=== PATIENT | male | born 1965 | race American Indian/Alaskan Native ===

== ENCOUNTER 2019-08-03 19:20 | Emergency (ER) | payer SELFPAY ==
[2019-08-03] MEDS ORDERED: CLINDAMYCIN 150 MG/ML VIAL 6 ML IM ONE (21:19)
[2019-08-03] MEDS ORDERED: TETANUS,DIPHTHERIA TOXOID ADULT 0.5 ML INJ IM ONE (21:19)
[2019-08-03] MEDS ORDERED: HYDROcodone/ACETAMINOPHEN 7.5-325MG TAB PO ONE (21:19)
--- NOTE | 2019-08-03 21:23 | Emergency Department Report ---
- General Chief complaint: Allergic Reaction Stated complaint: MORRIS,SORE THROAT Time Seen by Provider: 08/03/19 20:29 Source: patient Mode of arrival: Ambulatory Limitations: No Limitations - History of Present Illness Initial comments: Patient is a 54-year-old male presents emergency room with complaints of upper lip edema that began 3 days ago. He states that he did trim his mustache with a helen approximately a week ago. He states he has noticed a small amount of drainage to the upper lip. He states he has a subjective fever. He denies any nausea, vomiting, diarrhea, difficulty swallowing or difficulty breathing. He has a past medical history of sinusitis and hypertension. He states he is not on blood pressure medications and has not seen a doctor in 10 or more years. He is unsure of his last tetanus immunization. He states he has an allergy to honey. - Related Data Previous Rx's Medication Instructions Recorded Last Taken Type Clindamycin [Clindamycin CAP] 450 mg PO TID 7 Days #63 capsule 08/03/19 Unknown Rx traMADoL [Ultram 50 MG tab] 50 mg PO Q6HR PRN #10 tablet 08/03/19 Unknown Rx Allergies Allergy/AdvReac Type Severity Reaction Status Date / Time No Known Allergies Allergy Verified 08/03/19 21:56 Abscess Boil HPI - HPI Chief Complaint: Allergic Reaction Stated Complaint: MORRIS,SORE THROAT Time Seen by Provider: 08/03/19 20:29 Home Medications: Previous Rx's Medication Instructions Recorded Last Taken Type Clindamycin [Clindamycin CAP] 450 mg PO TID 7 Days #63 capsule 08/03/19 Unknown Rx traMADoL [Ultram 50 MG tab] 50 mg PO Q6HR PRN #10 tablet 08/03/19 Unknown Rx Allergies/Adverse Reactions: Allergies Allergy/AdvReac Type Severity Reaction Status Date / Time No Known Allergies Allergy Verified 08/03/19 21:56 ED Review of Systems ROS: Stated complaint: MORRIS,SORE THROAT Other details as noted in HPI Comment: All other systems reviewed and negative ED Past Medical Hx - Past Medical History Previous Medical History?: No - Surgical History Past Surgical History?: No - Social History Smoking Status: Never Smoker Substance Use Type: None - Medications Home Medications: Home Medications Medication Instructions Recorded Confirmed Last Taken Type Clindamycin [Clindamycin CAP] 450 mg PO TID 7 Days #63 capsule 08/03/19 Unknown Rx traMADoL [Ultram 50 MG tab] 50 mg PO Q6HR PRN #10 tablet 08/03/19 Unknown Rx ED Physical Exam - General Limitations: No Limitations General appearance: alert, in no apparent distress - Eye Eye exam: Present: normal appearance - ENT ENT exam: Present: normal orophraynx, mucous membranes moist, other (induration present to the upper lip, there is a small opening in the mustache region and a small opening present to the upper lip, able to manually express very small amount of purulent drainage, the skin of the upper lip is indurated and hard to palpation, not able to palpate central fluctuance) - Respiratory Respiratory exam: Present: normal lung sounds bilaterally. Absent: respiratory distress, wheezes, rales, rhonchi, stridor, chest wall tenderness, accessory muscle use, decreased breath sounds, prolonged expiratory - Cardiovascular Cardiovascular Exam: Present: regular rate, normal rhythm, normal heart sounds. Absent: systolic murmur, diastolic murmur, rubs, gallop - Neurological Exam Neurological exam: Present: alert, oriented X3 - Psychiatric Psychiatric exam: Present: normal affect, normal mood - Skin Skin exam: Present: warm, dry ED Course Vital Signs 08/03/19 08/03/19 08/03/19 19:27 19:29 21:54 Temperature 99.1 F 97.9 F Pulse Rate 94 H 80 Respiratory 18 18 Rate Blood Pressure 166/115 Blood Pressure 171/117 [Left] O2 Sat by Pulse 97 98 Oximetry ED Medical Decision Making - Lab Data Vital Signs 08/03/19 08/03/19 08/03/19 19:27 19:29 21:54 Temperature 99.1 F 97.9 F Pulse Rate 94 H 80 Respiratory 18 18 Rate Blood Pressure 166/115 Blood Pressure 171/117 [Left] O2 Sat by Pulse 97 98 Oximetry - Medical Decision Making Patient is a 54-year-old male presents emergency room with complaints of upper lip edema that began 3 days ago. He states that he did trim his mustache with a helen approximately a week ago. He states he has noticed a small amount of drainage to the upper lip. He states he has a subjective fever. He denies any nausea, vomiting, diarrhea, difficulty swallowing or difficulty breathing. He has a past medical history of sinusitis and hypertension. He states he is not on blood pressure medications and has not seen a doctor in 10 or more years. He is unsure of his last tetanus immunization. He states he has an allergy to honey. Vitals with elevated blood pressure otherwise stable. on exam: induration present to the upper lip, there is a small opening in the mustache region and a small opening present to the upper lip, able to manually express very small amount of purulent drainage, the skin of the upper lip is indurated and hard to palpation, not able to palpate central fluctuance. Patient examined by Dr. Ewing, ER attending who believes this is cellulitis and not an abscess at this time, he does not recommend I&D at this time, he recommends to give the patient antibiotics and have him follow-up with ENT. Patient given tetanus, clindamycin, pain medication while in the ED. Patient given prescription for pain medication and clindamycin. Advised patient Please take medication as prescribed. Do not drive or operate heavy machinery while taking pain medication. Please do not trim your mustache until all the infection has resolved. Please buy a new helen when you do begin trimming your mustache again. Please follow-up with the ear nose and throat doctor, it is very important that you follow-up with the ENT doctor in the next 3 days for reexamination. Return to the emergency room for any new or worsening symptoms. Please follow-up with a primary care doctor regarding the elevation in your blood pressure during today's visit. Keep a blood pressure log and take your blood pressure 3 times a day and take this to the primary care doctor. Eat a low-sodium (low salt) diet. Incorporate 30 minutes of daily exercise. Increase your water intake. Critical care attestation.: If time is entered above; I have spent that time in minutes in the direct care of this critically ill patient, excluding procedure time. ED Disposition Clinical Impression: Elevated blood pressure reading Cellulitis Qualifiers: Site of cellulitis: face Qualified Code(s): L03.211 - Cellulitis of face Disposition: DC- TO HOME OR SELFCARE Is pt being admited?: No Does the pt Need Aspirin: No Condition: Stable Instructions: Cellulitis (ED) Additional Instructions: Please take medication as prescribed. Do not drive or operate heavy machinery while taking pain medication. Please do not trim your mustache until all the infection has resolved. Please buy a new helen when you do begin trimming your mustache again. Please follow-up with the ear nose and throat doctor, it is very important that you follow-up with the ENT doctor in the next 3 days for reexamination. Return to the emergency room for any new or worsening symptoms. Please follow-up with a primary care doctor regarding the elevation in your blood pressure during today's visit. Keep a blood pressure log and take your blood pressure 3 times a day and take this to the primary care doctor. Eat a low-sodium (low salt) diet. Incorporate 30 minutes of daily exercise. Increase your water intake. Prescriptions: Clindamycin [Clindamycin CAP] 450 mg PO TID 7 Days #63 capsule traMADoL [Ultram 50 MG tab] 50 mg PO Q6HR PRN #10 tablet PRN Reason: Pain , Severe (7-10) Referrals: ELLA BOYLE MD [Staff Physician] - 3-5 Days ASHLEY STEWART MD [Staff Physician] - 3-5 Days ZEYAD MONTERO MD [Staff Physician] - 3-5 Days [facility] [Provider Group] - 3-[address] [facility] [Outside] - 3-5 Days [facility] [Outside] - 3-5 Days Forms: Work/School Release Form(ED) Time of Disposition: 21:24 Print Language: MAORI
[2019-08-03] MEDS ORDERED: DIPHtheria,PERTUSSIS(ACELL),TETANUS VACCINE/PF 0.5 ML VIAL IM ONE ×2 (21:43→21:45)
[2019-08-07 11:27] VITALS: BP 171/117
== END 2019-08-03 21:55 | disposition home or self-care (01) ==
LOC: ED 19:20
DX: K13.0 Diseases of lips (principal); I10 Essential (primary) hypertension; J32.9 Chronic sinusitis, unspecified; Z79.2 Long term (current) use of antibiotics; Z79.899 Other long term (current) drug therapy
CPT/HCPCS: 90714; 90715; 96372; 99282

== ENCOUNTER 2020-11-01 11:19 | Emergency (ER) | payer SELFPAY ==
[2020-11-01 11:44] VITALS: BP 129/95
[2020-11-01 12:57] LABS: Basophils % (Auto) 0.4 % (0.0-1.8); Eosinophils # (Auto) 0.4 K/mm3 (0.0-0.4); Eosinophils % (Auto) 5.8 % (0.0-4.3); Hematocrit 42.1 % (35.5-45.6); Lymphocytes # (Auto) 1.9 K/mm3 (1.2-5.4); Lymphocytes % (Auto) 30.2 % (13.4-35.0); Mean Corpuscular HGB Conc 33 % (32-34); Mean Corpuscular Volume 93 fl (84-94); Monocytes # (Auto) 0.5 K/mm3 (0.0-0.8); Monocytes % (Auto) 8.2 % (0.0-7.3); Platelet Count 214 K/mm3 (140-440); Red Blood Count 4.51 M/mm3 (3.65-5.03)
[2020-11-01 13:01] LABS: Alanine Aminotransferase 24 units/L (7-56); BUN/Creatinine Ratio 12; Blood Urea Nitrogen 16 mg/dL (9-20); Hemolysis Index 10
--- NOTE | 2020-11-01 13:23 | Emergency Department Report ---
ED General Adult HPI - General Chief complaint: Abdominal Pain Stated complaint: PAIN AND NAUSEA Time Seen by Provider: 11/01/20 12:30 Source: patient Mode of arrival: Ambulatory Limitations: No Limitations - History of Present Illness Initial comments: Patient is a 55-year-old male presents emergency room with complaints of left upper quadrant discomfort for over a month. He has associated nausea and reports that he has been having loose stools. He denies any vomiting, fever, hematochezia, melena, hematemesis, urinary symptoms, pain or swelling the testicles. He has never seen a GI doctor or had a colonoscopy/EGD. He denies any past medical history. No allergies to medications. - Related Data Previous Rx's Medication Instructions Recorded Last Taken Type Clindamycin [Clindamycin CAP] 450 mg PO TID 7 Days #63 capsule 08/03/19 Unknown Rx traMADoL [Ultram 50 MG tab] 50 mg PO Q6HR PRN #10 tablet 08/03/19 Unknown Rx Dicyclomine [Bentyl] 10 mg PO TID PRN #20 capsule 11/01/20 Unknown Rx Famotidine [Pepcid] 40 mg PO QHS #30 tablet 11/01/20 Unknown Rx Ondansetron [Zofran Odt] 4 mg PO Q8HR PRN #10 tab.rapdis 11/01/20 Unknown Rx Sucralfate [Carafate] 1 gm PO ACHS 7 Days #21 tablet 11/01/20 Unknown Rx Allergies Allergy/AdvReac Type Severity Reaction Status Date / Time No Known Allergies Allergy Verified 11/01/20 11:43 ED Review of Systems ROS: Stated complaint: PAIN AND NAUSEA Other details as noted in HPI Comment: All other systems reviewed and negative ED Past Medical Hx - Social History Smoking Status: Never Smoker Substance Use Type: None - Medications Home Medications: Home Medications Medication Instructions Recorded Confirmed Last Taken Type Clindamycin [Clindamycin CAP] 450 mg PO TID 7 Days #63 capsule 08/03/19 Unknown Rx traMADoL [Ultram 50 MG tab] 50 mg PO Q6HR PRN #10 tablet 08/03/19 Unknown Rx Dicyclomine [Bentyl] 10 mg PO TID PRN #20 capsule 11/01/20 Unknown Rx Famotidine [Pepcid] 40 mg PO QHS #30 tablet 08/07/21 Unknown Rx Ondansetron [Zofran Odt] 4 mg PO Q8HR PRN #10 tab.rapdis 11/01/20 Unknown Rx Sucralfate [Carafate] 1 gm PO ACHS 7 Days #21 tablet 11/01/20 Unknown Rx ED Physical Exam - General Limitations: No Limitations General appearance: alert, in no apparent distress - Head Head exam: Present: atraumatic, normocephalic - Eye Eye exam: Present: normal appearance - ENT ENT exam: Present: mucous membranes moist - Respiratory Respiratory exam: Present: normal lung sounds bilaterally. Absent: respiratory distress, wheezes, rales, rhonchi, stridor, chest wall tenderness, accessory muscle use, decreased breath sounds, prolonged expiratory - Cardiovascular Cardiovascular Exam: Present: regular rate, normal rhythm, normal heart sounds. Absent: systolic murmur, diastolic murmur, rubs, gallop - GI/Abdominal GI/Abdominal exam: Present: soft, tenderness (mild LUQ), normal bowel sounds. Absent: distended, guarding, rebound, rigid - Neurological Exam Neurological exam: Present: alert, oriented X3 - Psychiatric Psychiatric exam: Present: normal affect, normal mood - Skin Skin exam: Present: warm, dry, intact ED Course Vital Signs 11/01/20 11:43 Temperature 98.6 F Pulse Rate 72 Respiratory 16 Rate Blood Pressure 129/95 [Left] O2 Sat by Pulse 100 Oximetry ED Medical Decision Making - Lab Data Result diagrams: 11/01/20 12:08 11/01/20 12:08 Lab Results 11/01/20 11/01/20 Range/Units 12:08 12:08 WBC 6.3 (4.5-11.0) K/mm3 RBC 4.51 (3.65-5.03) M/mm3 Hgb 14.0 (11.8-15.2) gm/dl Hct 42.1 (35.5-45.6) % MCV 93 (84-94) fl MCH 31 (28-32) pg MCHC 33 (32-34) % RDW 14.0 (13.2-15.2) % Plt Count 214 (140-440) K/mm3 Lymph % (Auto) 30.2 (13.4-35.0) % [place] % (Auto) 8.2 H (0.0-7.3) % Eos % (Auto) 5.8 H (0.0-4.3) % Baso % (Auto) 0.4 (0.0-1.8) % Lymph # (Auto) 1.9 (1.2-5.4) K/mm3 [place] # (Auto) 0.5 (0.0-0.8) K/mm3 Eos # (Auto) 0.4 (0.0-0.4) K/mm3 Baso # (Auto) 0.0 (0.0-0.1) K/mm3 Seg Neutrophils % 55.4 (40.0-70.0) % Seg Neutrophils # 3.5 (1.8-7.7) K/mm3 Sodium 139 (137-145) mmol/L Potassium 4.6 (3.6-5.0) mmol/L Chloride 105.0 (98-107) mmol/L Carbon Dioxide 25 (22-30) mmol/L Anion Gap 14 mmol/L BUN 16 (9-20) mg/dL Creatinine 1.3 (0.8-1.3) mg/dL Estimated GFR > 60 ml/min BUN/Creatinine Ratio 12 % Glucose 84 (75-100) mg/dL Calcium 9.0 (8.4-10.2) mg/dL Total Bilirubin 0.30 (0.1-1.2) mg/dL AST 19 (5-40) units/L ALT 24 (7-56) units/L Alkaline Phosphatase 94 (35-129) units/L Total Protein 7.7 (6.3-8.2) g/dL Albumin 4.0 (3.9-5) g/dL Albumin/Globulin Ratio 1.1 % Lipase 36 (13-60) units/L - Medical Decision Making Patient is a 55-year-old male presents emergency room with complaints of left upper quadrant discomfort for over a month. He has associated nausea and reports that he has been having loose stools. He denies any vomiting, fever, hematochezia, melena, hematemesis, urinary symptoms, pain or swelling the testicles. He has never seen a GI doctor or had a colonoscopy/EGD. He denies any past medical history. No allergies to medications. Vitals are normal. On exam patient has mild left upper quadrant tenderness palpation, no guarding, no rebound, no rigidity, nor bowel sounds, no peritoneal signs. Labs are normal. Symptoms could potentially be related to PUD versus GERD. Stressed the i mportance of primary care and GI follow-up. Patient has not yet had a colonoscopy, discussed with patient that he should have received a colonoscopy at age 48. Patient given prescription for medications. Discussed strict return precautions with patient. Advised patient Please take medication as prescribed. Increase your water intake. Eat a bland liquid diet and slowly advance your diet as tolerated. Follow-up with a GI doctor, you need to have an outpatient colonoscopy and endoscopy. Follow-up with a primary care doctor. Return to emergency room for any new or worsening symptoms. Critical care attestation.: If time is entered above; I have spent that time in minutes in the direct care of this critically ill patient, excluding procedure time. ED Disposition Clinical Impression: Nausea, Loose stools Abdominal pain Qualifiers: Abdominal location: left upper quadrant Qualified Code(s): R10.12 - Left upper quadrant pain Disposition: - TO HOME OR SELFCARE Is pt being admited?: No Does the pt Need Aspirin: No Condition: Stable Instructions: Abdominal Pain, Adult Additional Instructions: Please take medication as prescribed. Increase your water intake. Eat a bland liquid diet and slowly advance your diet as tolerated. Follow-up with a GI doctor, you need to have an outpatient colonoscopy and endoscopy. Follow-up with a primary care doctor. Return to emergency room for any new or worsening symptoms. Prescriptions: Famotidine [Pepcid] 40 mg PO QHS #30 tablet Dicyclomine [Bentyl] 10 mg PO TID PRN #20 capsule PRN Reason: abdominal cramping Sucralfate [Carafate] 1 gm PO ACHS 7 Days #21 tablet Ondansetron [Zofran Odt] 4 mg PO Q8HR PRN #10 tab.rapdis PRN Reason: nausea/vomiting Referrals: [facility] [Provider Group] - 3-5 Days ZEYAD MONTERO MD [Staff Physician] - 3-5 Days [facility] [Provider Group] - 3-5 Days [facility] [Outside] - 3-5 Days [facility] [Outside] - 3-5 Days Time of Disposition: 13:20 Print Language: TONGAN
== END 2020-11-01 13:35 | disposition home or self-care (01) ==
LOC: ED 11:19
DX: R11.0 Nausea (principal); R10.12 Left upper quadrant pain; R19.5 Other fecal abnormalities; Z79.899 Other long term (current) drug therapy
CPT/HCPCS: 36415; 80053; 83690; 85025

== ENCOUNTER 2021-01-09 15:30 | Emergency (ER) | payer OTHER ==
[2021-01-09] MEDS ORDERED: METOCLOPRAMIDE 10 MG TAB PO ONE (16:23)
[2021-01-09] MEDS ORDERED: diphenhydrAMINE 25 MG CAP PO ONE (16:23)
[2021-01-09] MEDS ORDERED: ACETAMINOPHEN 325 MG TAB PO ONE (16:24)
--- NOTE | 2021-01-09 16:42 | Emergency Department Report ---
ED General Adult HPI - General Chief complaint: Headache Stated complaint: ABD PAIN Time Seen by Provider: 01/09/21 15:57 Source: patient Mode of arrival: Ambulatory Limitations: No Limitations - History of Present Illness Initial comments: 55-year-old male who denies any significant past medical history presents to the ER today with complaints of headache, URI symptoms and left lower quadrant abdominal pain. Patient states that he has been having headache, sneezing, rhinorrhea, nasal congestion, sore throat since Tuesday and he states that this morning he started having a dry cough. He states that the headache has been constant for the past 4 days and he is also been having pain in his neck and shoulders. He denies any fever but states he has been having chills. He states that he has been taking ctai-uwz-bghguet Claritin without much relief of his symptoms. He denies any wheezing, shortness of breath or chest pain. He denies any ill contacts. He states that he did take the Gorb vaccine August 2020. He states that he has not been taking anything for his headache. Patient also complains of mild pain to his left lower quadrant since Tuesday. He states that he felt constipated, took nwux-twe-viejoal MiraLAX and he did have a bowel movement yesterday. He denies any mucus or blood in his stool. He reports urinary frequency but denies any other UTI symptoms. He denies any nausea or vomiting. He denies any abdominal surgeries in the past. MD Complaint: Headache/URI symptoms/abdominal pain -: Gradual - Related Data Previous Rx's Medication Instructions Recorded Last Taken Type Clindamycin [Clindamycin CAP] 450 mg PO TID 7 Days #63 capsule 08/03/19 Unknown Rx Dicyclomine [Bentyl] 10 mg PO TID PRN #20 capsule 11/01/20 Unknown Rx Famotidine [Pepcid] 40 mg PO QHS #30 tablet 11/01/20 Unknown Rx Ondansetron [Zofran Odt] 4 mg PO Q8HR PRN #10 tab.rapdis 11/01/20 Unknown Rx Sucralfate [Carafate] 1 gm PO ACHS 7 Days #21 tablet 11/01/20 Unknown Rx Amlodipine Besylate [Norvasc] 5 mg PO DAILY #30 tablet 01/09/21 Unknown Rx Fluticasone [Flonase] 2 spray NS QDAY #1 bottle 01/09/21 Unknown Rx traMADoL [Ultram] 50 mg PO Q6HR PRN #12 tablet 01/09/21 Unknown Rx Allergies Allergy/AdvReac Type Severity Reaction Status Date / Time No Known Allergies Allergy Verified 11/01/20 11:43 ED Review of Systems ROS: Stated complaint: ABD PAIN Other details as noted in HPI Comment: All other systems reviewed and negative Constitutional: denies: chills, fever Eyes: denies: eye pain, eye discharge, vision change ENT: throat pain, congestion, other (rhinorrhea ) Respiratory: cough. denies: shortness of breath, SOB with exertion, SOB at rest, wheezing Cardiovascular: denies: chest pain, palpitations, dyspnea on exertion, edema, syncope, paroxysmal nocturnal dyspnea Gastrointestinal: abdominal pain. denies: nausea, vomiting, diarrhea, constipation, hematemesis, hematochezia Genitourinary: frequency. denies: urgency, dysuria, hematuria, discharge, testicular pain, testicular mass Musculoskeletal: denies: back pain, joint swelling, arthralgia Skin: denies: rash, lesions Neurological: headache. denies: weakness, numbness, paresthesias, confusion, abnormal gait, vertigo Psychiatric: denies: anxiety, depression, auditory hallucinations, visual hallucinations, homicidal thoughts, suicidal thoughts Hematological/Lymphatic: denies: easy bleeding, easy bruising, swollen glands ED Past Medical Hx - Past Medical History Previous Medical History?: No - Surgical History Past Surgical History?: No - Social History Smoking Status: Never Smoker Substance Use Type: None - Medications Home Medications: Home Medications Medication Instructions Recorded Confirmed Last Taken Type Clindamycin [Clindamycin CAP] 450 mg PO TID 7 Days #63 capsule 08/03/19 Unknown Rx Dicyclomine [Bentyl] 10 mg PO TID PRN #20 capsule 11/01/20 Unknown Rx Famotidine [Pepcid] 40 mg PO QHS #30 tablet 11/01/20 Unknown Rx Ondansetron [Zofran Odt] 4 mg PO Q8HR PRN #10 tab.rapdis 11/01/20 Unknown Rx Sucralfate [Carafate] 1 gm PO ACHS 7 Days #21 tablet 11/01/20 Unknown Rx Amlodipine Besylate [Norvasc] 5 mg PO DAILY #30 tablet 01/09/21 Unknown Rx Fluticasone [Flonase] 2 spray NS QDAY #1 bottle 01/09/21 Unknown Rx traMADoL [Ultram] 50 mg PO Q6HR PRN #12 tablet 01/09/21 Unknown Rx ED Physical Exam - General Limitations: No Limitations General appearance: alert, in no apparent distress - Head Head exam: Present: atraumatic, normocephalic, normal inspection - Eye Eye exam: Present: normal appearance, PERRL, EOMI Pupils: Present: normal accommodation - ENT ENT exam: Present: normal exam, mucous membranes moist, other (No sinus ttp ) - Expanded ENT Exam Expanded TM/Canal exam: Effusion: Right TM, Left TM Mouth exam: Present: normal external inspection Throat exam: Positive: normal inspection - Neck Neck exam: Present: normal inspection, full ROM - Respiratory Respiratory exam: Present: normal lung sounds bilaterally. Absent: respiratory distress, wheezes, rales, rhonchi - Cardiovascular Cardiovascular Exam: Present: regular rate, normal rhythm, normal heart sounds - GI/Abdominal GI/Abdominal exam: Present: soft, tenderness (mild ttp LLQ without guarding or rebound ). Absent: distended, guarding, rebound, rigid - Neurological Exam Neurological exam: Present: alert, oriented X3, CN II-XII intact, normal gait - Psychiatric Psychiatric exam: Present: normal affect, normal mood ED Course Vital Signs 01/09/21 01/09/21 01/09/21 15:51 17:09 17:53 Temperature 98.1 F Pulse Rate 91 H 77 Respiratory 18 16 16 Rate Blood Pressure 156/103 Blood Pressure 150/106 [Left] O2 Sat by Pulse 94 100 Oximetry 01/09/21 18:20 Temperature Pulse Rate 78 Respiratory Rate Blood Pressure 152/76 Blood Pressure [Left] O2 Sat by Pulse Oximetry ED Medical Decision Making - Lab Data Result diagrams: 01/09/21 16:30 01/09/21 16:30 - Radiology Data Radiology results: report reviewed Patient: WESTLEY LANDAVERDE MR#: [id number] : 1965 Acct:[id number] Age/Sex: 55 / M ADM Date: 01/09/21 Loc: ED Attending Dr: Ordering Physician: HAILEE MORENO Date of Service: 10/15/21 Procedure(s): XR chest routine 2V Accession Number(s): [id number] cc: HAILEE MORENO Fluoro Time In Minutes: CHEST PA AND LATERAL VIEWS INDICATION: cough. COMPARISON: None. FINDINGS: Support devices: None. Heart: Within normal limits. Lungs/Pleura: No acute pulmonary or pleural findings. IMPRESSION: 1. No acute findings. Signer Name: Daljit Robison MD Signed: 01/09/2021 5:09 PM Workstation Name: [id number] Transcribed By: BAL Dictated By: Daljit Robison MD Electronically Authenticated By: Daljit Robison MD Signed Date/Time: 01/09/211708 DD/ 08 TD/TT: - Medical Decision Making Patient sitting comfortably, with his headphones on and on his phone. He does not currently appear to be in any distress. He is not toxic or ill-appearing. He is neurologically intact with a normal gait. No meningeal signs on exam. Labs reviewed, CMP shows slight elevation in his creatinine but otherwise unremarkable. Chest x-ray shows nothing acute. Repeat vital signs for the patient blood pressure still elevated but remaining vital signs are stable. Patient states that he has been told in the past about his blood pressure, but never officially followed up with a PCP or have been started on any medication for it in the past. Patient is having URI symptoms with a headache and I suspect that his symptoms are likely viral in nature but informed him that his blood pressure could be contributing to his headache. I do not suspect stroke, meningitis, or any other intracranial abnormality warranting a head CT at this time. He will be started on low-dose Norvasc, and he was instructed to follow- up with PCP for continued monitoring of his high blood pressure. Patient has a nonsurgical abdominal exam. At this time I do not suspect diverticulitis, perforated bowel, kidney stone, appendicitis, dissection, or any other emergent intra-abdominal issues warranting additional testing at this time. Exact cause of his abdominal pain at this time unclear, but recommend close follow-up again with PCP, I did give patient warnings that if his abdominal pain gets worse in any way with associated nausea vomiting bloody stools mucousy stools to return to the ER. Patient expressed understanding of all instructions and agree with plan. Patient stable at time of discharge. Critical care attestation.: If time is entered above; I have spent that time in minutes in the direct care of this critically ill patient, excluding procedure time. ED Disposition Clinical Impression: URI (upper respiratory infection), Uncontrolled hypertension, Left lower quadrant abdominal pain Disposition: 01 HOME / SELF CARE / HOMELESS Is pt being admited?: No Does the pt Need Aspirin: No Condition: Stable Instructions: General Headache Without Cause, Upper Respiratory Infection, A dult, Abdominal Pain, Adult, Mbli-ff-Sqmu, Hypertension, Adult, Oics-gm-Eket, Hypertension (ED) Additional Instructions: I recommend that you take the norvasc as prescribed to help your blood pressure. It is important that you follow-up with the primary care doctor listed on your discharge instruction for continued monitoring of your high blood pressure. Recommend using the Flonase as prescribed, and continue taking the Claritin to help with your URI symptoms. Take the tramadol as prescribed to help with pain. You can take an outpatient COVID-19 test as this could also be the cause of your URI symptoms. Recommend that you quarantine until you can get the results of your test. Increase your water intake. You can follow-up with the PCP listed in your discharge instructions. Return to ER if any of his symptoms worsens or changes in any way. Prescriptions: Fluticasone [Flonase] 2 spray NS QDAY #1 bottle Amlodipine Besylate [Norvasc] 5 mg PO DAILY #30 tablet traMADoL [Ultram] 50 mg PO Q6HR PRN #12 tablet PRN Reason: Pain Referrals: ZEYAD MONTERO MD [Staff Physician] - 3-5 Days Forms: Work/School Release Form(ED) Time of Disposition: 18:29 Print Language: FRISIAN
[2021-01-09 16:54] LABS: Basophils % (Auto) 0.5 % (0.0-1.8); Eosinophils # (Auto) 0.4 K/mm3 (0.0-0.4); Eosinophils % (Auto) 6.8 % (0.0-4.3); Hematocrit 41.4 % (35.5-45.6); Hemoglobin 14.2 gm/dl (11.8-15.2); Lymphocytes # (Auto) 1.3 K/mm3 (1.2-5.4); Lymphocytes % (Auto) 21.3 % (13.4-35.0); Mean Corpuscular HGB Conc 34 % (32-34); Mean Corpuscular Volume 93 fl (84-94); Monocytes # (Auto) 0.6 K/mm3 (0.0-0.8); Monocytes % (Auto) 8.7 % (0.0-7.3); Platelet Count 202 K/mm3 (140-440); Red Blood Count 4.46 M/mm3 (3.65-5.03); Red Cell Distribution Width 14.1 % (13.2-15.2)
[2021-01-09 17:10] LABS: Alanine Aminotransferase 19 units/L (7-56); Albumin 4.2 g/dL (3.9-5); BUN/Creatinine Ratio 7; Blood Urea Nitrogen 10 mg/dL (9-20); Calcium 9.2 mg/dL (8.4-10.2); Hemolysis Index 6
--- NOTE | 2021-01-09 17:14 | XRay Report ---
CHEST PA AND LATERAL VIEWS INDICATION: cough. COMPARISON: None. FINDINGS: Support devices: None. Heart: Within normal limits. Lungs/Pleura: No acute pulmonary or pleural findings. IMPRESSION: 1. No acute findings. Signer Name: Daljit Robison MD Signed: 01/09/2021 5:09 PM Workstation Name: [id number]
[2021-01-09] MEDS ORDERED: amLODIPine 5 MG TAB PO ONE (17:54)
[2021-01-09 18:21] VITALS: BP 152/76
[2021-01-09 18:33] LABS: Bilirubin,Urine NEG (Negative); Blood,Urine NEG (Negative); Color,Urine Yellow (Yellow); Protein,Urine <15 mg/dL mg/dL (Negative); Urobilinogen,Urine < 2.0 mg/dL (<2.0); WBC,Urine < 1.0 /HPF (0.0-6.0)
== END 2021-01-09 19:29 | disposition home or self-care (01) ==
LOC: ED 15:30
DX: J06.9 Acute upper respiratory infection, unspecified (principal); I10 Essential (primary) hypertension; R10.32 Left lower quadrant pain
CPT/HCPCS: 36415; 71046; 80053; 81001; 83690; 85025; 99283

== ENCOUNTER 2021-10-14 10:48 | Emergency (ER) | payer OTHER ==
--- NOTE | 2021-10-14 12:47 | Emergency Department Report ---
Stated Complaint: RIGHT FOOT FRACTURE/ PULLED MUSCLES Time Seen by Provider: 10/14/21 12:45 - HPI History of Present Illness: States that he injured her right heel when he jumped off a dock at work this a.m. Denies LOC - ROS Review of Systems: Right heel pain - Exam Physical Exam: Alert and oriented x3 MSE screening note: Focused history and physical exam performed. Due to findings the following was ordered: Right foot x-ray Patient will be evaluated by provider when he gets to the room in the back. ED Disposition for MSE Condition: Stable
[2021-10-14 12:49] VITALS: BP 155/102
--- NOTE | 2021-10-14 13:24 | XRay Report ---
Right foot, 3 views HISTORY: Right foot pain COMPARISON: None FINDINGS: No acute fracture or subluxation. Mild hallux valgus with mild first MTP and scattered IP o steoarthritis. Lisfranc interval is preserved. No focal soft tissue abnormality. IMPRESSION: No acute findings. Signer Name: Gustavo Bautista MD Signed: 10/14/2021 1:20 PM Workstation Name: [id number]
--- NOTE | 2021-10-14 15:00 | Emergency Department Report ---
ED Fall HPI - General Chief Complaint: Extremity Injury, Lower Stated Complaint: RIGHT FOOT FRACTURE/ PULLED MUSCLES Time Seen by Provider: 10/14/21 12:45 Source: patient Mode of arrival: Ambulatory - History of Present Illness Initial Comments: Patient is a 56-year-old -[place] male with a history of hypertension who presents to the ED with complaint of acute onset right ankle pain and swelling after he slipped and fell off a deck at work 4 days ago. Patient states that the pain has been constant and persistent and that he is unable to bear weight on the right ankle because of pain. Patient also complains of low back pain and diffuse leg pain and muscle spasm. Patient denies dizziness, syncope, seizures, numbness and tingling or weakness of lower extremities bilaterally, chest pain or shortness of breath, nausea and vomiting, loss of consciousness, head or neck injuries or change in vision. MD Complaint: fall, other (RIGHT ANKLE PAIN) -: days(s) (4) Fall From: other (fell off a deck at work) When Fall Occurred: # days [employer] [facility] (4) Fall Witnessed: yes, by bystander Place Fall Occurred: work Loss of Consciousness: none Prolonged Down Time?: no Symptoms Prior to Fall: none Location: other (left leg pain; right ankle pain) Location - Extremities: Left: Leg (pain), Right: Ankle (pain and swelling) Severity: severe Severity scale (0 -10): 8 Quality: sharp, aching Context: tripped/slipped Associated Symptoms: denies. denies: headache, neck pain, numbness, weakness, chest paint, shortness of breath, abdominal pain, hematuria, unable to walk, lightheaded, vertigo, confusion, other - Related Data Previous Rx's Medication Instructions Recorded Last Taken Type Clindamycin [Clindamycin CAP] 450 mg PO TID 7 Days #63 capsule 08/03/19 Unknown Rx Dicyclomine [Bentyl] 10 mg PO TID PRN #20 capsule 11/01/20 Unknown Rx Famotidine [Pepcid] 40 mg PO QHS #30 tablet 11/01/20 Unknown Rx Ondansetron [Zofran Odt] 4 mg PO Q8HR PRN #10 tab.rapdis 11/01/20 Unknown Rx Sucralfate [Carafate] 1 gm PO ACHS 7 Days #21 tablet 11/01/20 Unknown Rx Amlodipine Besylate [Norvasc] 5 mg PO DAILY #30 tablet 01/09/21 Unknown Rx Fluticasone [Flonase] 2 spray NS QDAY #1 bottle 01/09/21 Unknown Rx Baclofen 20 mg PO Q12H PRN #24 tab 10/14/21 Unknown Rx Ibuprofen [Motrin] 800 mg PO Q8HR PRN #30 tablet 10/14/21 Unknown Rx traMADoL [Ultram 50 MG tab] 50 mg PO Q6HR PRN #12 tablet 10/14/21 Unknown Rx Allergies Allergy/AdvReac Type Severity Reaction Status Date / Time No Known Allergies Allergy Verified 11/01/20 11:43 ED Review of Systems ROS: Stated complaint: RIGHT FOOT FRACTURE/ PULLED MUSCLES Other details as noted in HPI Constitutional: denies: chills, fever Eyes: denies: eye pain, eye discharge, vision change ENT: denies: ear pain, throat pain Respiratory: denies: cough, shortness of breath, wheezing Cardiovascular: denies: chest pain, palpitations Endocrine: no symptoms reported Gastrointestinal: denies: abdominal pain, nausea, vomiting, diarrhea Genitourinary: denies: urgency, dysuria Musculoskeletal: joint swelling (Right ankle swelling), arthralgia (Right ankle pain and swelling), other (Left leg pain). denies: back pain Skin: denies: rash, lesions Neurological: denies: headache, weakness, paresthesias Psychiatric: denies: anxiety, depression Hematological/Lymphatic: denies: easy bleeding, easy bruising ED Past Medical Hx - Past Medical History Previous Medical History?: Yes Hx Hypertension: Yes - Surgical History Past Surgical History?: No - Social History Smoking Status: Never Smoker Substance Use Type: None - Medications Home Medications: Home Medications Medication Instructions Recorded Confirmed Last Taken Type Clindamycin [Clindamycin CAP] 450 mg PO TID 7 Days #63 capsule 08/03/19 Unknown Rx Dicyclomine [Bentyl] 10 mg PO TID PRN #20 capsule 11/01/20 Unknown Rx Famotidine [Pepcid] 40 mg PO QHS #30 tablet 11/01/20 Unknown Rx Ondansetron [Zofran Odt] 4 mg PO Q8HR PRN #10 tab.rapdis 11/01/20 Unknown Rx Sucralfate [Carafate] 1 gm PO ACHS 7 Days #21 tablet 11/01/20 Unknown Rx Amlodipine Besylate [Norvasc] 5 mg PO DAILY #30 tablet 01/09/21 Unknown Rx Fluticasone [Flonase] 2 spray NS QDAY #1 bottle 01/09/21 Unknown Rx Baclofen 20 mg PO Q12H PRN #24 tab 10/14/21 Unknown Rx Ibuprofen [Motrin] 800 mg PO Q8HR PRN #30 tablet 10/14/21 Unknown Rx traMADoL [Ultram 50 MG tab] 50 mg PO Q6HR PRN #12 tablet 10/14/21 Unknown Rx ED Physical Exam - General Limitations: No Limitations General appearance: alert, in no apparent distress - Head Head exam: Present: atraumatic, normocephalic, normal inspection - Eye Eye exam: Present: normal appearance, PERRL, EOMI Pupils: Present: normal accommodation - ENT ENT exam: Present: normal exam, normal orophraynx, mucous membranes moist, TM's normal bilaterally, normal external ear exam - Neck Neck exam: Present: normal inspection, full ROM. Absent: tenderness - Respiratory Respiratory exam: Present: normal lung sounds bilaterally. Absent: respiratory distress, wheezes, rales, rhonchi, stridor, chest wall tenderness, accessory muscle use, decreased breath sounds, other - Cardiovascular Cardiovascular Exam: Present: regular rate, normal rhythm, normal heart sounds. Absent: systolic murmur, diastolic murmur, rubs, gallop - GI/Abdominal GI/Abdominal exam: Present: soft, normal bowel sounds. Absent: tenderness, guarding, hyperactive bowel sounds, hypoactive bowel sounds, organomegaly, mass - Extremities Exam Extremities exam: Present: normal inspection, tenderness (Palpable right ankle tenderness with mild swelling and limited range of motion due to pain), normal capillary refill, joint swelling. Absent: full ROM (Limited range of motion of right ankle due to pain), pedal edema - Back Exam Back exam: Present: normal inspection, full ROM, tenderness (Palpable lumbosacral paraspinal musculoskeletal tenderness), muscle spasm, paraspinal tenderness. Absent: CVA tenderness (L), vertebral tenderness - Neurological Exam Neurological exam: Present: alert, oriented X3, CN II-XII intact, normal gait, reflexes normal - Psychiatric Psychiatric exam: Present: normal affect, normal mood - Skin Skin exam: Present: warm, dry, intact, normal color. Absent: rash ED Course Vital Signs 10/14/21 12:47 Temperature 98.1 F Pulse Rate 79 Respiratory 18 Rate Blood Pressure 155/102 O2 Sat by Pulse 96 Oximetry ED Medical Decision Making - Radiology Data Radiology results: report reviewed, image reviewed [facility] [address] [place] [address] XRay Report Signed Patient: WESTLEY LANDAVERDE MR#: [id number] : 1965 Acct:[id number] Age/Sex: 56 / M ADM Date: 10/14/21 Loc: ED Attending Dr: Ordering Physician: CARLA BROOKS Date of Service: 10/14/21 Procedure(s): XR foot 3+V RT Accession Number(s): [id number] cc: CARLA BROOKS Fluoro Time In Minutes: Right foot, 3 views HISTORY: Right foot pain COMPARISON: None FINDINGS: No acute fracture or subluxation. Mild hallux valgus with mild first MTP and scattered IP osteoarthritis. Lisfranc interval is preserved. No focal soft tissue abnormality. IMPRESSION: No acute findings. Signer Name: Ella Bautista MD Signed: 10/14/2021 1:20 PM Workstation Name: [id number] Transcribed By: JS Dictated By: ELLA BAUTISTA MD Electronically Authenticated By: ELLA BAUTISTA MD Signed Date/Time: 10/14/21 1320 DD/ 1319 TD/TT: Print Cancel - Medical Decision Making This is a 56-year-old -[place] male with a history of hypertension who presents to the ED with complaint of acute onset right ankle pain and swelling after he slipped and fell off a deck at work 4 days ago. Patient states that the pain has been constant and persistent and that he is unable to bear weight on the right ankle because of pain. Patient also complains of low back pain and diffuse leg pain and muscle spasm. In the ED, patient is alert and oriented x3 and is not in any distress. Patient was treated for pain in the ED. Right ankle x-ray showed no acute fractures or subluxations. On reevaluation, patient's pain is well controlled medication and was discharged home on medications for pain and advised to follow-up with his primary care physician in 7 to 10 days for reevaluation or return to the ED immediately if symptoms get worse. - Differential Diagnosis Ankle fracture; ankle sprain; muscle strain; muscle spasm of back Critical care attestation.: If time is entered above; I have spent that time in minutes in the direct care of this critically ill patient, excluding procedure time. ED Disposition Clinical Impression: Spasm of muscle of lower back Muscle strain of left lower extremity Qualifiers: Encounter type: initial encounter Qualified Code(s): S86.912A - Strain of unspecified muscle(s) and tendon(s) at lower leg level, left leg, initial encounter Severe sprain of right ankle Qualifiers: Encounter type: initial encounter Qualified Code(s): S93.401A - Sprain of unspecified ligament of right ankle, initial encounter Disposition: HOME / SELF CARE / HOMELESS Is pt being admited?: No Does the pt Need Aspirin: No Condition: Stable Instructions: Muscle Cramps and Spasms, [id number], Ankle Sprain, Easy-to- Read, Muscle Strain, Byya-jl-[id number] Additional Instructions: The right ankle x-ray showed no acute fractures or subluxations. Therefore take medications with food, drink plenty of fluids, follow-up with your primary care physician in 7 to 10 days for reevaluation. Return to the ED immediately if symptoms get worse. Prescriptions: Baclofen 20 mg PO Q12H PRN #24 tab PRN Reason: Muscle spasm / strain Ibuprofen [Motrin] 800 mg PO Q8HR PRN #30 tablet PRN Reason: Pain , Severe (7-10) traMADoL [Ultram 50 MG tab] 50 mg PO Q6HR PRN #12 tablet PRN Reason: Pain Referrals: ZEYAD MONTERO MD [Primary Care Provider] - 3-5 Days Forms: Work/School Release Form(ED) Time of Disposition: 15:00 Print Language: DANISH
== END 2021-10-14 15:50 | disposition home or self-care (01) ==
LOC: ED 10:48
DX: S86.912A Strain of unspecified muscle(s) and tendon(s) at lower leg level, left leg, initial encounter (principal); S93.401A Sprain of unspecified ligament of right ankle, initial encounter; M62.830 Muscle spasm of back; I10 Essential (primary) hypertension; W19.XXXA Unspecified fall, initial encounter; Y93.89 Activity, other specified; Y92.89 Other specified places as the place of occurrence of the external cause; Y99.8 Other external cause status
CPT/HCPCS: 99283